=== PATIENT | male | born 1995 | race Caucasian/White ===

== ENCOUNTER 2018-06-24 21:03 | Emergency (ER) | payer MEDICAID ==
[~2018-06-24] VITALS: Ht 170.2 cm; Wt 103.4 kg
[2018-06-24 21:16] VITALS: Ht 170.2 cm; Wt 103.4 kg
[2018-06-24 22:53] VITALS: BP 131/73
== END 2018-06-24 22:53 | disposition home or self-care (01) ==
LOC: ED 21:03
DX: M75.101 Unspecified rotator cuff tear or rupture of right shoulder, not specified as traumatic (principal)